=== PATIENT | male | born 1985 | race Caucasian/White ===

== ENCOUNTER 2016-09-27 02:35 | Emergency (ER) | payer OTHER ==
[~2016-09-27] VITALS: Ht 180.3 cm; Wt 76.0 kg
[~2016-09-27 02:35] MED LIST: AMOXICILLIN500 MG PO; ATARAX,VISTARIL50 MG PO; ATIVAN0.5 MG PO; CELEXA10 MG PO; CLONIDINE HCL0.1 MG PO; DOXYCYCLINE HY100 M3 PO; DOXYCYCLINE HY100 MG PO; EXCEDRIN MIGRA1 EAC3 PO; FINASTERIDE1 MG PO; FINASTERIDE5 MG PO; FLEXERIL10 MG PO; HYDROCODON-ACE1 EAC7 PO; K-DUR20 MEQ PO; LEXAPRO10 MG PO; LIBRIUM25 MG PO; MEDROL DOSEPAK4 MG PO; MOTRIN600 MG PO; NAPROXEN500 MG PO; PEPTO BISMOL240 ML PO; PROMETHAZINE HC25 M1 PO; QUETIAPINE FUMA50 MG PO; ROGAINE60 ML TP; SUBOXONE 8 M1 TABLET SL; SUBOXONE 8 MG-1 EAC2 SL; THIAMINE HCL100 MG PO; TRAZODONE HCL50 MG PO; ZANTAC150 MG PO; ZOFRAN ODT4 MG PO; ZOFRAN4 MG PO
[2016-09-27] MEDS ORDERED: ATIVAN2 MG PO (04:31)
[2016-09-27] MEDS ORDERED: THIAMINE HCL100 MG PO (04:31)
[2016-09-27] MEDS ORDERED: ZOFRAN ODT4 MG PO (04:31)
[2016-09-27 04:46] VITALS: BP 114/58
== END 2016-09-27 04:49 | disposition home or self-care (01) ==
LOC: EME 02:35
DX: F10.129 Alcohol abuse with intoxication, unspecified (principal); F11.23 Opioid dependence with withdrawal; F17.200 Nicotine dependence, unspecified, uncomplicated
CPT/HCPCS: 99281; 99284

== ENCOUNTER 2016-10-16 19:54 | Emergency (ER) | payer OTHER ==
[~2016-10-16] VITALS: Ht 180.3 cm; Wt 78.5 kg
[~2016-10-16 19:54] MED LIST changes: +ATIVAN2 MG PO
[2016-10-16 22:07] LABS: BILIRUBIN NEGATIVE; BLOOD NEGATIVE; COLOR YELLOW ((YELLOW)); GLUCOSE (STRIP) NEGATIVE; KETONES 5; LEUKOCYTES NEGATIVE; NITRITE NEGATIVE; PROTEIN (STRIP) NEGATIVE; SPECIFIC GRAVITY 1.017 (1.000-1.030); UROBILINOGEN 0.2 MG/DL (0.2-1.0)
[2016-10-16 22:10] LABS: HEMATOCRIT 43.8 % (38.0-50.0); MCH 31.5 PG (29.0-34.0); MCHC 35.4 G/DL (30.0-36.0); MEAN PLAT.VOLUME 9.7 uM^3 (9.0-12.4); PLATELET COUNT 248 K/uL (156-360); RBC DIS.WIDTH-SD 38.8 % (39-53); RED BLOOD COUNT 4.92 M/uL (4.00-5.50); WHITE BLOOD COUNT 9.6 K/uL (4.1-10.2)
[2016-10-16 22:12] LABS: ADD MIUA? NO
[2016-10-16 22:21] LABS: CHLORIDE 105 mEq/L (99-109); POTASSIUM 4.3 mEq/L (3.7-5.4); SODIUM 142 mEq/L (136-147)
[2016-10-16 22:23] LABS: GLUCOSE 102 mg/dL (70-99)
[2016-10-16 22:24] LABS: ANION GAP 11 MEQ/L (2-14)
[2016-10-16 22:25] LABS: TOTAL BILIRUBIN 0.2 mg/dL (0.0-1.0)
[2016-10-16 22:26] LABS: SERUM ETHYL ALCOHOL 138 mg/dL
[2016-10-16 22:26] LABS: ADD MEDTOX COMMENT Y; AMPHETAMINE NEGATIVE (500 ng/mL); BARBITURATES NEGATIVE (200 ng/mL); BENZODIAZEPINES PRESUMPTIVE POSITIVE (150 ng/mL); COCAINE NEGATIVE (150 ng/mL); INTERNAL CONTROLS VALID? YES; METHADONE NEGATIVE (200 ng/mL); METHAMPHETAMINE NEGATIVE (500 ng/mL); OPIATES (MORPHINE) NEGATIVE (100 ng/mL); OXYCODONE NEGATIVE (100 ng/mL); PHENCYCLIDINE NEGATIVE (25 ng/mL); PROPOXYPHENE NEGATIVE (300 ng/mL); THC CANNABINOIDS NEGATIVE (50 ng/mL); TRICYCLIC ANTIDEPRESSANTS PRESUMPTIVE POSITIVE (300 ng/mL)
[2016-10-16 22:27] LABS: ALKALINE PHOSPHATASE 93 IU/L (3-129); GFR ESTIMATE (CALCULATED) > 59 mL/min/
[2016-10-16 22:28] LABS: UREA NITROGEN (BUN) 7 mg/dL (9-23)
[2016-10-16] MEDS ORDERED: HYDROXYZINE HCL50 MG PO (22:34)
[2016-10-16 22:43] VITALS: BP 136/78
[2016-10-16 23:19] LABS: BENZODIAZEPINES, URINE SCREEN POSITIVE (200 ng/mL)
== END 2016-10-16 22:43 | disposition home or self-care (01) ==
LOC: EME 19:54
PROVIDERS: Emergency Medicine
DX: F10.129 Alcohol abuse with intoxication, unspecified (principal); Y90.6 Blood alcohol level of 120-199 mg/100 ml; F41.9 Anxiety disorder, unspecified; F17.200 Nicotine dependence, unspecified, uncomplicated
CPT/HCPCS: 80053; 81003; 84999; 85027; 99281; 99284; G0480

== ENCOUNTER 2016-12-21 07:27 | Emergency (ER) | payer OTHER ==
[~2016-12-21] VITALS: Ht 180.3 cm; Wt 72.7 kg
[~2016-12-21 07:27] MED LIST changes: +HYDROXYZINE HCL50 MG PO
[2016-12-21 08:40] LABS: HEMATOCRIT 47.4 % (38.0-50.0); MCH 31.1 PG (29.0-34.0); MCHC 35.4 G/DL (30.0-36.0); MCV 87.8 FL (86-99); MEAN PLAT.VOLUME 9.8 uM^3 (9.0-12.4); PLATELET COUNT 196 K/uL (156-360); RBC DIS.WIDTH-CV 13.2 % (11.8-14.6); RBC DIS.WIDTH-SD 42.6 % (39-53); WHITE BLOOD COUNT 6.6 K/uL (4.1-10.2)
[2016-12-21 08:56] LABS: TROP-I INTERPRETATION NEGATIVE; TROPONIN-I < 0.01 ng/mL (0.0-0.30)
[2016-12-21 09:00] LABS: CHLORIDE 106 mEq/L (99-109); D-DIMER ELISA 0.31 mg/L FEU (< 0.57); POTASSIUM 3.9 mEq/L (3.7-5.4); SODIUM 138 mEq/L (136-147)
[2016-12-21 09:01] LABS: GLUCOSE 101 mg/dL (70-99)
[2016-12-21 09:03] LABS: ANION GAP 8 MEQ/L (2-14)
[2016-12-21 09:05] LABS: GFR ESTIMATE (CALCULATED) > 59 mL/min/
[2016-12-21 09:06] LABS: UREA NITROGEN (BUN) 6 mg/dL (9-23)
[2016-12-21 10:32] VITALS: BP 138/86
== END 2016-12-21 10:43 | disposition home or self-care (01) ==
LOC: EME 07:27
PROVIDERS: Emergency Medicine
DX: R00.2 Palpitations (principal); F17.200 Nicotine dependence, unspecified, uncomplicated; F19.10 Other psychoactive substance abuse, uncomplicated; F10.10 Alcohol abuse, uncomplicated; Z91.19 Patient's noncompliance with other medical treatment and regimen
CPT/HCPCS: 71010; 80048; 84484; 85027; 85379; 93005; 99281; 99284

== ENCOUNTER 2017-02-07 03:56 | Emergency (ER) | payer OTHER ==
[~2017-02-07] VITALS: Ht 180.3 cm; Wt 71.3 kg
[2017-02-07 04:32] LABS: HEMATOCRIT 44.9 % (38.0-50.0); MCHC 35.6 G/DL (30.0-36.0); MEAN PLAT.VOLUME 10.2 uM^3 (9.0-12.4); PLATELET COUNT 135 K/uL (156-360); RBC DIS.WIDTH-CV 13.7 % (11.8-14.6); RBC DIS.WIDTH-SD 44.1 % (39-53); RED BLOOD COUNT 5.16 M/uL (4.00-5.50); WHITE BLOOD COUNT 10.6 K/uL (4.1-10.2)
[2017-02-07 04:45] LABS: CHLORIDE 102 mEq/L (99-109); POTASSIUM 3.4 mEq/L (3.7-5.4); SODIUM 142 mEq/L (136-147)
[2017-02-07 04:47] LABS: GLUCOSE 89 mg/dL (70-99)
[2017-02-07 04:49] LABS: ANION GAP 19 MEQ/L (2-14)
[2017-02-07 04:50] LABS: SERUM ETHYL ALCOHOL 294 mg/dL
[2017-02-07 04:51] LABS: GFR ESTIMATE (CALCULATED) > 59 mL/min/
[2017-02-07 04:52] LABS: UREA NITROGEN (BUN) 7 mg/dL (9-23)
[2017-02-07 04:55] LABS: TROP-I INTERPRETATION NEGATIVE; TROPONIN-I < 0.01 ng/mL (0.0-0.30)
[2017-02-07 05:48] LABS: D-DIMER ELISA 0.99 mg/L FEU (< 0.57)
[2017-02-07] MEDS ORDERED: ATIVAN2 MG PO (05:53)
[2017-02-07 09:03] VITALS: BP 114/67
== END 2017-02-07 09:04 | disposition home or self-care (01) ==
LOC: EME → EDBD 03:56 → EME 04:14
PROVIDERS: Physician Assistant
DX: R00.2 Palpitations (principal); F10.129 Alcohol abuse with intoxication, unspecified; T44.7X6A Underdosing of beta-adrenoreceptor antagonists, initial encounter; Z91.128 Patient's intentional underdosing of medication regimen for other reason; Z91.19 Patient's noncompliance with other medical treatment and regimen; Y90.8 Blood alcohol level of 240 mg/100 ml or more; F17.200 Nicotine dependence, unspecified, uncomplicated
CPT/HCPCS: 71275; 80048; 84484; 85027; 85379; 93005; 99281; 99284; G0480; J2060; J7030

== ENCOUNTER 2017-03-22 09:03 | Emergency (ER) | payer OTHER ==
[~2017-03-22] VITALS: Ht 180.3 cm; Wt 69.1 kg
[2017-03-22 10:36] LABS: ADD MIUA? NO; BILIRUBIN NEGATIVE; BLOOD NEGATIVE; COLOR YELLOW ((YELLOW)); GLUCOSE (STRIP) NEGATIVE; KETONES NEGATIVE; LEUKOCYTES NEGATIVE; NITRITE NEGATIVE; PROTEIN (STRIP) NEGATIVE; SPECIFIC GRAVITY 1.015 (1.000-1.030); UROBILINOGEN 0.2 MG/DL (0.2-1.0)
[2017-03-22 10:53] LABS: ADD MEDTOX COMMENT Y; AMPHETAMINE NEGATIVE (500 ng/mL); BARBITURATES NEGATIVE (200 ng/mL); BENZODIAZEPINES PRESUMPTIVE POSITIVE (150 ng/mL); COCAINE NEGATIVE (150 ng/mL); INTERNAL CONTROLS VALID? YES; METHADONE NEGATIVE (200 ng/mL); METHAMPHETAMINE NEGATIVE (500 ng/mL); OPIATES (MORPHINE) NEGATIVE (100 ng/mL); OXYCODONE NEGATIVE (100 ng/mL); PHENCYCLIDINE NEGATIVE (25 ng/mL); PROPOXYPHENE NEGATIVE (300 ng/mL); THC CANNABINOIDS NEGATIVE (50 ng/mL); TRICYCLIC ANTIDEPRESSANTS PRESUMPTIVE POSITIVE (300 ng/mL)
[2017-03-22 11:26] LABS: BENZODIAZEPINES, URINE SCREEN POSITIVE (200 ng/mL)
[2017-03-22 13:38] LABS: HEMATOCRIT 46.6 % (38.0-50.0); MCH 31.1 PG (29.0-34.0); MCHC 34.5 G/DL (30.0-36.0); MCV 90.1 FL (86-99); MEAN PLAT.VOLUME 9.5 uM^3 (9.0-12.4); PLATELET COUNT 243 K/uL (156-360); RBC DIS.WIDTH-CV 13.2 % (11.8-14.6); RBC DIS.WIDTH-SD 43.8 % (39-53); RED BLOOD COUNT 5.17 M/uL (4.00-5.50); WHITE BLOOD COUNT 7.4 K/uL (4.1-10.2)
[2017-03-22 13:49] LABS: CHLORIDE 107 mEq/L (99-109); POTASSIUM 4.6 mEq/L (3.7-5.4); SODIUM 141 mEq/L (136-147)
[2017-03-22 13:51] LABS: GLUCOSE 83 mg/dL (70-99)
[2017-03-22 13:52] LABS: ANION GAP 8 MEQ/L (2-14)
[2017-03-22 13:53] LABS: TOTAL BILIRUBIN 0.4 mg/dL (0.0-1.0)
[2017-03-22 13:54] LABS: SERUM ETHYL ALCOHOL 122 mg/dL
[2017-03-22 13:55] LABS: ALKALINE PHOSPHATASE 98 IU/L (3-129); GFR ESTIMATE (CALCULATED) > 59 mL/min/
[2017-03-22 13:56] LABS: UREA NITROGEN (BUN) 11 mg/dL (9-23)
[2017-03-22 14:01] VITALS: BP 101/60
== END 2017-03-22 14:04 | disposition left against medical advice (07) ==
LOC: EME 09:03
PROVIDERS: Emergency Medicine
DX: F11.10 Opioid abuse, uncomplicated (principal); F10.10 Alcohol abuse, uncomplicated; Z53.20 Procedure and treatment not carried out because of patient's decision for unspecified reasons; K21.9 Gastro-esophageal reflux disease without esophagitis; F17.200 Nicotine dependence, unspecified, uncomplicated
CPT/HCPCS: 80053; 81003; 84999; 85027; 99281; 99284; G0480

== ENCOUNTER 2017-04-25 01:27 | Emergency (ER) | payer OTHER ==
[~2017-04-25] VITALS: Ht 177.8 cm; Wt 72.8 kg
[2017-04-25 02:14] LABS: MCH 31.6 PG (29.0-34.0); MCHC 35.5 G/DL (30.0-36.0); MCV 89.2 FL (86-99); MEAN PLAT.VOLUME 9.8 uM^3 (9.0-12.4); PLATELET COUNT 221 K/uL (156-360); RBC DIS.WIDTH-CV 12.9 % (11.8-14.6); RBC DIS.WIDTH-SD 42.5 % (39-53); RED BLOOD COUNT 4.71 M/uL (4.00-5.50); WHITE BLOOD COUNT 9.5 K/uL (4.1-10.2)
[2017-04-25 02:30] LABS: CHLORIDE 105 mEq/L (99-109); POTASSIUM 3.8 mEq/L (3.7-5.4); SODIUM 142 mEq/L (136-147)
[2017-04-25 02:32] LABS: GLUCOSE 107 mg/dL (70-99)
[2017-04-25 02:33] LABS: ANION GAP 14 MEQ/L (2-14)
[2017-04-25 02:34] LABS: TROP-I INTERPRETATION NEGATIVE; TROPONIN-I < 0.01 ng/mL (0.0-0.30)
[2017-04-25 02:35] LABS: SERUM ETHYL ALCOHOL 140 mg/dL
[2017-04-25 02:36] LABS: GFR ESTIMATE (CALCULATED) > 59 mL/min/
[2017-04-25 02:37] LABS: UREA NITROGEN (BUN) 7 mg/dL (9-23)
[2017-04-25 08:04] VITALS: BP 107/71
== END 2017-04-25 08:06 | disposition home or self-care (01) ==
LOC: EME 01:27
PROVIDERS: Emergency Medicine
DX: R07.9 Chest pain, unspecified (principal); F10.239 Alcohol dependence with withdrawal, unspecified; F17.200 Nicotine dependence, unspecified, uncomplicated; I47.1 Supraventricular tachycardia
CPT/HCPCS: 71020; 80048; 84484; 85027; 93005; 99281; 99284; G0480; J2060; J7030

== ENCOUNTER 2017-06-07 04:26 | Inpatient (IN) | payer OTHER ==
[~2017-06-07] VITALS: Ht 180.3 cm; Wt 70.5 kg
[2017-06-07 05:23] LABS: HEMATOCRIT 44.4 % (38.0-50.0); MCH 30.7 PG (29.0-34.0); MCHC 34.5 G/DL (30.0-36.0); MCV 89.2 FL (86-99); MEAN PLAT.VOLUME 9.4 uM^3 (9.0-12.4); PLATELET COUNT 244 K/uL (156-360); RBC DIS.WIDTH-SD 42.4 % (39-53); RED BLOOD COUNT 4.98 M/uL (4.00-5.50)
[2017-06-07 05:27] LABS: CHLORIDE 105 mEq/L (99-109); POTASSIUM 4.1 mEq/L (3.7-5.4); SODIUM 143 mEq/L (136-147)
[2017-06-07 05:29] LABS: TROP-I INTERPRETATION NEGATIVE; TROPONIN-I < 0.01 ng/mL (0.0-0.30)
[2017-06-07 05:30] LABS: GLUCOSE 112 mg/dL (70-99)
[2017-06-07 05:31] LABS: ANION GAP 11 MEQ/L (2-14); TOTAL BILIRUBIN 0.3 mg/dL (0.0-1.0)
[2017-06-07 05:32] LABS: SERUM ETHYL ALCOHOL 240 mg/dL
[2017-06-07 05:33] LABS: ALKALINE PHOSPHATASE 89 IU/L (3-129); GFR ESTIMATE (CALCULATED) > 59 mL/min/
[2017-06-07 05:34] LABS: UREA NITROGEN (BUN) 10 mg/dL (9-23)
[2017-06-07 05:37] LABS: LIPASE 37 U/L (1.0-51.0)
[2017-06-07 08:40] LABS: MAGNESIUM 2.1 mg/dL (1.3-2.7)
[2017-06-07] MEDS ORDERED: QUETIAPINE FUM100 MG PO (10:21)
[2017-06-07] MEDS ORDERED: SUBOXONE 8 MG-1 EAC2 SL (10:34)
[2017-06-07] MEDS ORDERED: EFFEXOR50 MG PO (11:19)
[2017-06-07 12:33] LABS: TROP-I INTERPRETATION NEGATIVE; TROPONIN-I < 0.01 ng/mL (0.0-0.30)
[2017-06-07 17:49] VITALS: BP 132/84
[2017-06-07 18:23] LABS: TROP-I INTERPRETATION NEGATIVE; TROPONIN-I < 0.01 ng/mL (0.0-0.30)
[2017-06-07 18:29] VITALS: BP 134/84
[2017-06-07 20:13] VITALS: BP 143/86
[2017-06-08 00:32] VITALS: BP 135/91
[2017-06-08 07:45] VITALS: BP 130/72
[2017-06-08] MEDS ORDERED: LIBRIUM10 MG PO (10:38)
[2017-06-08] MEDS ORDERED: CLONIDINE1 EACH TD (10:38)
== END 2017-06-08 11:14 | disposition home or self-care (01) | DRG 313 ==
LOC: EME → EDBD 04:26 → EDOF 07:55 → ENRESERV 07:58 → CANRESERV 07:58 → EDOF 08:15 → ENRESERV 08:55 → CANRESERV 12:13 → ENRESERV 13:11 → 3EAST 17:37
PROVIDERS: Emergency Medicine; Internal Medicine
DX: R07.89 Other chest pain (principal); F43.0 Acute stress reaction; R00.2 Palpitations; R00.0 Tachycardia, unspecified; F10.239 Alcohol dependence with withdrawal, unspecified; F11.20 Opioid dependence, uncomplicated; F17.200 Nicotine dependence, unspecified, uncomplicated; F60.9 Personality disorder, unspecified; F32.9 Major depressive disorder, single episode, unspecified; F41.9 Anxiety disorder, unspecified; Y90.8 Blood alcohol level of 240 mg/100 ml or more
CPT/HCPCS: 71010; 80048; 80053; 83690; 83735; 84484; 85027; 93005; 99281; 99285; G0480; J0574; J2060; J3411; J7030; J7042; S0028

== ENCOUNTER 2017-08-04 22:06 | Inpatient (IN) | payer OTHER ==
[~2017-08-04] VITALS: Ht 180.3 cm; Wt 71.3 kg
[~2017-08-04 22:06] MED LIST changes: +CLONIDINE1 EACH TD; +EFFEXOR50 MG PO; +LIBRIUM10 MG PO; +QUETIAPINE FUM100 MG PO
[2017-08-04 22:34] LABS: HEMATOCRIT 42.4 % (38.0-50.0); HEMOGLOBIN 15.2 G/DL (12.5-16.6); MCH 31.7 PG (29.0-34.0); MCHC 35.8 G/DL (30.0-36.0); MCV 88.3 FL (86-99); PLATELET COUNT 197 K/uL (156-360); RBC DIS.WIDTH-CV 13.5 % (11.8-14.6); RBC DIS.WIDTH-SD 44.1 % (39-53); WHITE BLOOD COUNT 7.7 K/uL (4.1-10.2)
[2017-08-04 22:45] LABS: CHLORIDE 103 mEq/L (99-109); POTASSIUM 3.6 mEq/L (3.7-5.4); SODIUM 138 mEq/L (136-147)
[2017-08-04 22:47] LABS: GLUCOSE 144 mg/dL (70-99)
[2017-08-04 22:50] LABS: SERUM ETHYL ALCOHOL 17 mg/dL
[2017-08-04 22:51] LABS: GFR ESTIMATE (CALCULATED) > 59 mL/min/ (58.99-99999)
[2017-08-04 22:52] LABS: UREA NITROGEN (BUN) 13 mg/dL (9-23)
[2017-08-04] MEDS ORDERED: BUPRENORPHIN-N1 EACH SL (23:06)
[2017-08-04 23:33] LABS: ALBUMIN 4.2 g/dL (3.2-4.8)
[2017-08-04 23:36] LABS: TOTAL PROTEIN 7.1 g/dL (6.4-8.3)
[2017-08-04 23:38] LABS: TOTAL BILIRUBIN 0.3 mg/dL (0.0-1.0)
[2017-08-04 23:39] LABS: ALKALINE PHOSPHATASE 90 IU/L (3-129)
[2017-08-04 23:41] LABS: AST (GOT) 22 IU/L (2-34)
[2017-08-04 23:42] LABS: ALT (GPT) 20 IU/L (3-49)
[2017-08-04 23:43] LABS: LIPASE 37 U/L (1.0-51.0)
[2017-08-05] MEDS ORDERED: ALPRAZOLAM0.25 M2 PO (01:11)
[2017-08-05] MEDS ORDERED: ADDERALL XR 3030 MG PO (01:11)
[2017-08-05] MEDS ORDERED: SEROQUEL100 MG PO (01:11)
[2017-08-05 12:13] LABS: AMPHETAMINE NEGATIVE (500 ng/mL); BARBITURATES NEGATIVE (200 ng/mL); BENZODIAZEPINES PRESUMPTIVE POSITIVE (150 ng/mL); BUPRENORPHINE PRESUMPTIVE POSITIVE (10 ng/mL); COCAINE NEGATIVE (150 ng/mL); METHADONE NEGATIVE (200 ng/mL); METHAMPHETAMINE NEGATIVE (500 ng/mL); OPIATES (MORPHINE) NEGATIVE (100 ng/mL); OXYCODONE NEGATIVE (100 ng/mL); PHENCYCLIDINE NEGATIVE (25 ng/mL); PROPOXYPHENE NEGATIVE (300 ng/mL); THC CANNABINOIDS NEGATIVE (50 ng/mL); TRICYCLIC ANTIDEPRESSANTS NEGATIVE (300 ng/mL)
[2017-08-05 12:49] LABS: BENZODIAZEPINES, URINE SCREEN POSITIVE (200 ng/mL)
[2017-08-05 16:53] VITALS: BP 142/97
[2017-08-05 19:29] VITALS: BP 139/89
[2017-08-05 23:41] VITALS: BP 146/101
[2017-08-06 08:35] VITALS: BP 133/95
[2017-08-06 10:45] LABS: BASOPHIL (%) 0.6 % (0-1); EOSINOPHIL (%) 4.7 % (0-5); EOSINOPHIL COUNT 0.3 K/uL (0-0.3); HEMATOCRIT 41.5 % (38.0-50.0); HEMOGLOBIN 14.7 G/DL (12.5-16.6); IMMATURE GRANULOCYTE (%) 0.3 % (0.0-0.7); LYMPHOCYTE (%) 32.1 % (15-42); MCH 31.5 PG (29.0-34.0); MCHC 35.4 G/DL (30.0-36.0); MCV 89.1 FL (86-99); MONOCYTE (%) 11.7 % (3-12); MONOCYTE COUNT 0.7 K/uL (0-0.8); NEUTROPHIL (%) 50.6 % (45-76); NEUTROPHIL COUNT 3.2 K/uL (1.8-6.4); PLATELET COUNT 178 K/uL (156-360); RBC DIS.WIDTH-CV 13.3 % (11.8-14.6); RBC DIS.WIDTH-SD 43.8 % (39-53); RED BLOOD COUNT 4.66 M/uL (4.00-5.50); WHITE BLOOD COUNT 6.4 K/uL (4.1-10.2)
[2017-08-06 10:59] LABS: ALBUMIN 3.7 g/dL (3.2-4.8); CHLORIDE 110 mEq/L (99-109); POTASSIUM 4.6 mEq/L (3.7-5.4); SODIUM 139 mEq/L (136-147)
[2017-08-06 11:00] LABS: MAGNESIUM 2.2 mg/dL (1.3-2.7)
[2017-08-06 11:05] LABS: ALKALINE PHOSPHATASE 77 IU/L (3-129); CREATININE 0.8 mg/dL (0.6-1.3); GFR ESTIMATE (CALCULATED) > 59 mL/min/ (58.99-99999); GLUCOSE 96 mg/dL (70-99); TOTAL BILIRUBIN 0.4 mg/dL (0.0-1.0)
[2017-08-06 11:06] LABS: UREA NITROGEN (BUN) 9 mg/dL (9-23)
[2017-08-06 11:07] LABS: AST (GOT) 16 IU/L (2-34)
[2017-08-06 11:08] LABS: ALT (GPT) 13 IU/L (3-49)
[2017-08-06 11:25] VITALS: BP 142/106
== END 2017-08-06 20:50 | disposition left against medical advice (07) | DRG 894 ==
LOC: EME 22:06 → 5EAST 08-05 00:44 → EDOF 08-05 00:44 → 5EAST 08-05 00:44 → ENRESERV 08-05 00:46 → 5EAST 08-05 16:54
PROVIDERS: Physician Assistant
PROC: HZ2ZZZZ Detoxification Services for Substance Abuse Treatment (ICD-10-PCS; principal; 2017-08-05)
DX: F10.239 Alcohol dependence with withdrawal, unspecified (principal); F11.20 Opioid dependence, uncomplicated; F33.9 Major depressive disorder, recurrent, unspecified; R44.0 Auditory hallucinations; F60.9 Personality disorder, unspecified; F41.0 Panic disorder [episodic paroxysmal anxiety]; F17.210 Nicotine dependence, cigarettes, uncomplicated; F17.220 Nicotine dependence, chewing tobacco, uncomplicated; F13.10 Sedative, hypnotic or anxiolytic abuse, uncomplicated; Y90.0 Blood alcohol level of less than 20 mg/100 ml; F12.10 Cannabis abuse, uncomplicated; G25.2 Other specified forms of tremor; R45.1 Restlessness and agitation; F90.9 Attention-deficit hyperactivity disorder, unspecified type; Z88.1 Allergy status to other antibiotic agents; Z91.14 Patient's other noncompliance with medication regimen; Z91.19 Patient's noncompliance with other medical treatment and regimen
CPT/HCPCS: 80048; 80053; 80076; 82140; 83690; 83735; 84999; 85025; 85027; 99281; 99285; G0480; J0572; J0574; J2060; J2405; J3411; J3475; J7030

== ENCOUNTER 2017-08-09 17:35 | Emergency (ER) | payer OTHER ==
[~2017-08-09] VITALS: Ht 180.3 cm; Wt 74.8 kg
[~2017-08-09 17:35] MED LIST changes: +ADDERALL XR 3030 MG PO; +ALPRAZOLAM0.25 M2 PO; +BUPRENORPHIN-N1 EACH SL; +SEROQUEL100 MG PO
[2017-08-09 18:58] LABS: HEMATOCRIT 42.7 % (38.0-50.0); HEMOGLOBIN 15.8 G/DL (12.5-16.6); MCH 32.2 PG (29.0-34.0); MCV 87.1 FL (86-99); RBC DIS.WIDTH-CV 13.3 % (11.8-14.6); RBC DIS.WIDTH-SD 42.7 % (39-53); WHITE BLOOD COUNT 9.4 K/uL (4.1-10.2)
[2017-08-09 18:59] LABS: PLATELET COUNT 240 K/uL (156-360)
[2017-08-09 19:06] LABS: ALBUMIN 4.1 g/dL (3.2-4.8)
[2017-08-09 19:07] LABS: CHLORIDE 110 mEq/L (99-109); POTASSIUM 3.8 mEq/L (3.7-5.4); SODIUM 144 mEq/L (136-147)
[2017-08-09 19:09] LABS: GLUCOSE 113 mg/dL (70-99); TOTAL PROTEIN 6.9 g/dL (6.4-8.3)
[2017-08-09 19:12] LABS: ALKALINE PHOSPHATASE 89 IU/L (3-129)
[2017-08-09 19:13] LABS: CREATININE 0.9 mg/dL (0.6-1.3); GFR ESTIMATE (CALCULATED) > 59 mL/min/ (58.99-99999)
[2017-08-09 19:14] LABS: AST (GOT) 20 IU/L (2-34); UREA NITROGEN (BUN) 8 mg/dL (9-23)
[2017-08-09 19:15] LABS: ALT (GPT) 22 IU/L (3-49)
[2017-08-09 19:20] LABS: TOTAL BILIRUBIN 0.2 mg/dL (0.0-1.0)
[2017-08-09 19:33] LABS: SERUM ETHYL ALCOHOL 276 mg/dL
[2017-08-09 20:30] VITALS: BP 143/94
== END 2017-08-09 20:29 | disposition left against medical advice (07) ==
LOC: EME 17:35
DX: F10.229 Alcohol dependence with intoxication, unspecified (principal); Y90.8 Blood alcohol level of 240 mg/100 ml or more; F17.200 Nicotine dependence, unspecified, uncomplicated
CPT/HCPCS: 80053; 81003; 85027; 99281; 99283; G0480

== ENCOUNTER 2017-08-20 14:25 | Emergency (ER) | payer OTHER ==
[~2017-08-20] VITALS: Ht 180.3 cm; Wt 72.3 kg
[2017-08-20 19:11] LABS: HEMATOCRIT 41.9 % (38.0-50.0); HEMOGLOBIN 14.6 G/DL (12.5-16.6); MCH 30.9 PG (29.0-34.0); MCHC 34.8 G/DL (30.0-36.0); MCV 88.8 FL (86-99); PLATELET COUNT 256 K/uL (156-360); RBC DIS.WIDTH-CV 13.5 % (11.8-14.6); RBC DIS.WIDTH-SD 44.3 % (39-53); RED BLOOD COUNT 4.72 M/uL (4.00-5.50); WHITE BLOOD COUNT 7.9 K/uL (4.1-10.2)
[2017-08-20 19:19] LABS: CHLORIDE 108 mEq/L (99-109); POTASSIUM 4.2 mEq/L (3.7-5.4); SODIUM 145 mEq/L (136-147)
[2017-08-20 19:21] LABS: GLUCOSE 97 mg/dL (70-99)
[2017-08-20 19:24] LABS: SERUM ETHYL ALCOHOL 160 mg/dL
[2017-08-20 19:25] LABS: CREATININE 0.9 mg/dL (0.6-1.3); GFR ESTIMATE (CALCULATED) > 59 mL/min/ (58.99-99999)
[2017-08-20 19:27] LABS: UREA NITROGEN (BUN) 9 mg/dL (9-23)
[2017-08-20 19:28] LABS: ACETAMINOPHEN (TYLENOL) < 10 mcg/mL (10-30); SALICYLATE < 5.0 MG/DL (15-30)
[2017-08-20 20:27] LABS: AMPHETAMINE NEGATIVE (500 ng/mL); BARBITURATES NEGATIVE (200 ng/mL); BENZODIAZEPINES PRESUMPTIVE POSITIVE (150 ng/mL); BUPRENORPHINE PRESUMPTIVE POSITIVE (10 ng/mL); COCAINE NEGATIVE (150 ng/mL); METHADONE NEGATIVE (200 ng/mL); METHAMPHETAMINE NEGATIVE (500 ng/mL); OPIATES (MORPHINE) NEGATIVE (100 ng/mL); OXYCODONE NEGATIVE (100 ng/mL); PHENCYCLIDINE NEGATIVE (25 ng/mL); PROPOXYPHENE NEGATIVE (300 ng/mL); THC CANNABINOIDS NEGATIVE (50 ng/mL); TRICYCLIC ANTIDEPRESSANTS NEGATIVE (300 ng/mL)
[2017-08-20 20:59] LABS: BENZODIAZEPINES, URINE SCREEN POSITIVE (200 ng/mL)
[2017-08-20] MEDS ORDERED: LIBRIUM25 MG PO (21:59)
[2017-08-20 22:05] VITALS: BP 125/89
== END 2017-08-20 22:31 | disposition home or self-care (01) ==
LOC: EME 14:25
PROVIDERS: Emergency Medicine
DX: F10.239 Alcohol dependence with withdrawal, unspecified (principal); R11.2 Nausea with vomiting, unspecified; F32.9 Major depressive disorder, single episode, unspecified; Y90.6 Blood alcohol level of 120-199 mg/100 ml; F17.200 Nicotine dependence, unspecified, uncomplicated
CPT/HCPCS: 80048; 84999; 85027; 90839; G0480; J2060; J7030

== ENCOUNTER 2017-08-28 19:13 | Emergency (ER) | payer OTHER ==
[~2017-08-28] VITALS: Ht 180.3 cm; Wt 71.3 kg
[2017-08-28 19:56] LABS: HEMATOCRIT 42.1 % (38.0-50.0); HEMOGLOBIN 15.3 G/DL (12.5-16.6); MCH 31.9 PG (29.0-34.0); MCHC 36.3 G/DL (30.0-36.0); MCV 87.7 FL (86-99); PLATELET COUNT 236 K/uL (156-360); RBC DIS.WIDTH-CV 13.5 % (11.8-14.6); RBC DIS.WIDTH-SD 43.5 % (39-53); WHITE BLOOD COUNT 15.2 K/uL (4.1-10.2)
[2017-08-28 20:00] LABS: APPEARANCE CLEAR ((CLEAR)); BILIRUBIN NEGATIVE; BLOOD NEGATIVE; COLOR STRAW ((YELLOW)); GLUCOSE (STRIP) NEGATIVE; KETONES NEGATIVE; LEUKOCYTES NEGATIVE; NITRITE NEGATIVE; PROTEIN (STRIP) NEGATIVE; SPECIFIC GRAVITY 1.006 (1.000-1.030); UROBILINOGEN 0.2 MG/DL (0.2-1.0)
[2017-08-28 20:07] LABS: ALBUMIN 4.6 g/dL (3.2-4.8); CHLORIDE 109 mEq/L (99-109); POTASSIUM 4.2 mEq/L (3.7-5.4); SODIUM 142 mEq/L (136-147)
[2017-08-28 20:09] LABS: GLUCOSE 103 mg/dL (70-99); TOTAL PROTEIN 7.4 g/dL (6.4-8.3)
[2017-08-28 20:10] LABS: PHENCYCLIDINE NEGATIVE (25 ng/mL); THC CANNABINOIDS NEGATIVE (50 ng/mL)
[2017-08-28 20:11] LABS: AMPHETAMINE NEGATIVE (500 ng/mL); BARBITURATES NEGATIVE (200 ng/mL); BENZODIAZEPINES PRESUMPTIVE POSITIVE (150 ng/mL); BUPRENORPHINE NEGATIVE (10 ng/mL); COCAINE NEGATIVE (150 ng/mL); METHADONE PRESUMPTIVE POSITIVE (200 ng/mL); METHAMPHETAMINE NEGATIVE (500 ng/mL); OPIATES (MORPHINE) NEGATIVE (100 ng/mL); OXYCODONE NEGATIVE (100 ng/mL); PROPOXYPHENE NEGATIVE (300 ng/mL); TRICYCLIC ANTIDEPRESSANTS NEGATIVE (300 ng/mL)
[2017-08-28 20:11] LABS: TOTAL BILIRUBIN 0.3 mg/dL (0.0-1.0)
[2017-08-28 20:12] LABS: SERUM ETHYL ALCOHOL 343 mg/dL
[2017-08-28 20:13] LABS: ALKALINE PHOSPHATASE 89 IU/L (3-129); CREATININE 1.2 mg/dL (0.6-1.3); GFR ESTIMATE (CALCULATED) > 59 mL/min/ (58.99-99999)
[2017-08-28 20:14] LABS: AST (GOT) 27 IU/L (2-34); UREA NITROGEN (BUN) 13 mg/dL (9-23)
[2017-08-28 20:16] LABS: ALT (GPT) 20 IU/L (3-49)
[2017-08-28 23:47] VITALS: BP 129/78
[2017-08-29 04:03] LABS: BENZODIAZEPINES, URINE SCREEN POSITIVE (200 ng/mL)
== END 2017-08-28 23:50 | disposition home or self-care (01) ==
LOC: EME 19:13
PROVIDERS: Emergency Medicine
DX: F11.129 Opioid abuse with intoxication, unspecified (principal); F13.129 Sedative, hypnotic or anxiolytic abuse with intoxication, unspecified; K21.9 Gastro-esophageal reflux disease without esophagitis; I10 Essential (primary) hypertension; F17.200 Nicotine dependence, unspecified, uncomplicated; F41.0 Panic disorder [episodic paroxysmal anxiety]; F32.9 Major depressive disorder, single episode, unspecified; Y90.8 Blood alcohol level of 240 mg/100 ml or more; Z88.1 Allergy status to other antibiotic agents
CPT/HCPCS: 80053; 81003; 84999; 85027; 99281; 99285; G0480

== ENCOUNTER 2017-08-29 14:09 | Emergency (ER) | payer OTHER ==
[~2017-08-29] VITALS: Ht 180.3 cm; Wt 75.0 kg
[2017-08-29 14:38] LABS: BASOPHIL (%) 0.7 % (0-1); BASOPHIL COUNT 0.1 K/uL (0-0.1); EOSINOPHIL (%) 4.9 % (0-5); EOSINOPHIL COUNT 0.4 K/uL (0-0.3); HEMATOCRIT 41.9 % (38.0-50.0); HEMOGLOBIN 14.9 G/DL (12.5-16.6); IMMATURE GRANULOCYTE (%) 0.6 % (0.0-0.7); LYMPHOCYTE (%) 22.6 % (15-42); LYMPHOCYTE COUNT 1.9 K/uL (1.0-2.8); MCH 31.5 PG (29.0-34.0); MCHC 35.6 G/DL (30.0-36.0); MCV 88.6 FL (86-99); MONOCYTE (%) 9.4 % (3-12); MONOCYTE COUNT 0.8 K/uL (0-0.8); NEUTROPHIL (%) 61.8 % (45-76); NEUTROPHIL COUNT 5.3 K/uL (1.8-6.4); PLATELET COUNT 210 K/uL (156-360); RBC DIS.WIDTH-CV 13.7 % (11.8-14.6); RBC DIS.WIDTH-SD 44.4 % (39-53); RED BLOOD COUNT 4.73 M/uL (4.00-5.50); WHITE BLOOD COUNT 8.6 K/uL (4.1-10.2)
[2017-08-29 14:51] LABS: ALBUMIN 4.2 g/dL (3.2-4.8); CHLORIDE 106 mEq/L (99-109); POTASSIUM 4.1 mEq/L (3.7-5.4); SODIUM 143 mEq/L (136-147)
[2017-08-29 14:53] LABS: GLUCOSE 82 mg/dL (70-99); TOTAL PROTEIN 6.7 g/dL (6.4-8.3)
[2017-08-29 14:56] LABS: SERUM ETHYL ALCOHOL 318 mg/dL
[2017-08-29 14:57] LABS: ALKALINE PHOSPHATASE 70 IU/L (3-129); CREATININE 0.9 mg/dL (0.6-1.3); GFR ESTIMATE (CALCULATED) > 59 mL/min/ (58.99-99999)
[2017-08-29 14:58] LABS: AST (GOT) 36 IU/L (2-34); UREA NITROGEN (BUN) 11 mg/dL (9-23)
[2017-08-29 15:00] LABS: ALT (GPT) 21 IU/L (3-49)
[2017-08-29 15:04] LABS: TOTAL BILIRUBIN 0.4 mg/dL (0.0-1.0)
[2017-08-29 16:45] LABS: AMPHETAMINE NEGATIVE (500 ng/mL); BENZODIAZEPINES PRESUMPTIVE POSITIVE (150 ng/mL); COCAINE NEGATIVE (150 ng/mL); METHAMPHETAMINE NEGATIVE (500 ng/mL); OPIATES (MORPHINE) NEGATIVE (100 ng/mL); PHENCYCLIDINE NEGATIVE (25 ng/mL); THC CANNABINOIDS NEGATIVE (50 ng/mL)
[2017-08-29 16:46] LABS: BARBITURATES NEGATIVE (200 ng/mL); BUPRENORPHINE NEGATIVE (10 ng/mL); METHADONE PRESUMPTIVE POSITIVE (200 ng/mL); OXYCODONE NEGATIVE (100 ng/mL); PROPOXYPHENE NEGATIVE (300 ng/mL); TRICYCLIC ANTIDEPRESSANTS NEGATIVE (300 ng/mL)
[2017-08-29 17:20] VITALS: BP 00/00
[2017-08-29 17:23] LABS: BENZODIAZEPINES, URINE SCREEN POSITIVE (200 ng/mL)
== END 2017-08-29 17:28 | disposition home or self-care (01) ==
LOC: EME 14:09
PROVIDERS: Emergency Medicine
DX: F10.129 Alcohol abuse with intoxication, unspecified (principal); K21.9 Gastro-esophageal reflux disease without esophagitis; I10 Essential (primary) hypertension; F32.9 Major depressive disorder, single episode, unspecified; F41.0 Panic disorder [episodic paroxysmal anxiety]; F41.9 Anxiety disorder, unspecified; F17.200 Nicotine dependence, unspecified, uncomplicated; Y90.8 Blood alcohol level of 240 mg/100 ml or more; Z79.891 Long term (current) use of opiate analgesic; Z88.1 Allergy status to other antibiotic agents
CPT/HCPCS: 80053; 83735; 84999; 85025; 99281; 99283; G0480

== ENCOUNTER 2017-10-09 22:58 | Emergency (ER) | payer OTHER ==
[~2017-10-09] VITALS: Ht 180.3 cm; Wt 72.0 kg
[2017-10-10] MEDS ORDERED: MOTRIN800 MG PO (02:18)
[2017-10-10] MEDS ORDERED: FIORICET 50-301 EAC1 PO (02:18)
[2017-10-10] MEDS ORDERED: REGLAN10 MG PO (02:18)
[2017-10-10 03:20] VITALS: BP 120/83
== END 2017-10-10 03:24 | disposition home or self-care (01) ==
LOC: EME 22:58
DX: G43.009 Migraine without aura, not intractable, without status migrainosus (principal); G44.209 Tension-type headache, unspecified, not intractable; R42 Dizziness and giddiness; F17.200 Nicotine dependence, unspecified, uncomplicated
CPT/HCPCS: 99281; 99285; J1885; J2765; J7030

== ENCOUNTER 2017-10-18 23:52 | Emergency (ER) | payer OTHER ==
[~2017-10-18] VITALS: Ht 180.3 cm; Wt 75.6 kg
[~2017-10-18 23:52] MED LIST changes: +FIORICET 50-301 EAC1 PO; +MOTRIN800 MG PO; +REGLAN10 MG PO
[2017-10-19 00:52] LABS: HEMOGLOBIN 16.1 G/DL (12.5-16.6); MCH 31.6 PG (29.0-34.0); MCHC 35.8 G/DL (30.0-36.0); MCV 88.4 FL (86-99); PLATELET COUNT 309 K/uL (156-360); RBC DIS.WIDTH-CV 12.5 % (11.8-14.6); RBC DIS.WIDTH-SD 40.9 % (39-53); RED BLOOD COUNT 5.09 M/uL (4.00-5.50); WHITE BLOOD COUNT 10.1 K/uL (4.1-10.2)
[2017-10-19 01:04] LABS: ALBUMIN 4.5 g/dL (3.2-4.8); CHLORIDE 104 mEq/L (99-109); POTASSIUM 4.6 mEq/L (3.7-5.4); SODIUM 140 mEq/L (136-147)
[2017-10-19 01:07] LABS: GLUCOSE 102 mg/dL (70-99); TOTAL PROTEIN 7.4 g/dL (6.4-8.3)
[2017-10-19 01:09] LABS: TOTAL BILIRUBIN 0.3 mg/dL (0.0-1.0)
[2017-10-19 01:10] LABS: ALKALINE PHOSPHATASE 116 IU/L (3-129); CREATININE 1.1 mg/dL (0.6-1.3); GFR ESTIMATE (CALCULATED) > 59 mL/min/ (58.99-99999)
[2017-10-19 01:11] LABS: UREA NITROGEN (BUN) 13 mg/dL (9-23)
[2017-10-19 01:12] LABS: AST (GOT) 22 IU/L (2-34)
[2017-10-19 01:13] LABS: ALT (GPT) 20 IU/L (3-49)
[2017-10-19 03:09] LABS: MAGNESIUM 2.3 mg/dL (1.3-2.7)
[2017-10-19 03:13] LABS: SERUM ETHYL ALCOHOL 176 mg/dL
[2017-10-19 03:16] LABS: LIPASE 36 U/L (1.0-51.0)
[2017-10-19 03:17] LABS: CREATINE KINASE 156 IU/L (1-294)
[2017-10-19 03:22] LABS: TROP-I INTERPRETATION NEGATIVE; TROPONIN-I < 0.01 ng/mL (0.0-0.30)
[2017-10-19 07:46] LABS: AMPHETAMINE NEGATIVE (500 ng/mL); BARBITURATES PRESUMPTIVE POSITIVE (200 ng/mL); BENZODIAZEPINES PRESUMPTIVE POSITIVE (150 ng/mL); COCAINE NEGATIVE (150 ng/mL); METHADONE NEGATIVE (200 ng/mL); METHAMPHETAMINE NEGATIVE (500 ng/mL); OPIATES (MORPHINE) NEGATIVE (100 ng/mL); PHENCYCLIDINE NEGATIVE (25 ng/mL); THC CANNABINOIDS NEGATIVE (50 ng/mL); TRICYCLIC ANTIDEPRESSANTS NEGATIVE (300 ng/mL)
[2017-10-19 07:47] LABS: BUPRENORPHINE PRESUMPTIVE POSITIVE (10 ng/mL); OXYCODONE NEGATIVE (100 ng/mL); PROPOXYPHENE NEGATIVE (300 ng/mL)
[2017-10-19 08:20] LABS: BENZODIAZEPINES, URINE SCREEN Negative (200 ng/mL)
[2017-10-19] MEDS ORDERED: LIBRIUM25 MG PO (09:29)
[2017-10-19] MEDS ORDERED: B-1100 MG PO (09:29)
[2017-10-19 09:44] VITALS: BP 134/93
== END 2017-10-19 09:45 | disposition home or self-care (01) ==
LOC: EME 23:52
PROVIDERS: Emergency Medicine
DX: F41.9 Anxiety disorder, unspecified (principal); F10.239 Alcohol dependence with withdrawal, unspecified; R51 Headache; R00.2 Palpitations; R11.2 Nausea with vomiting, unspecified; F32.9 Major depressive disorder, single episode, unspecified; R00.0 Tachycardia, unspecified; I45.10 Unspecified right bundle-branch block; Z81.1 Family history of alcohol abuse and dependence; Z81.8 Family history of other mental and behavioral disorders; F17.200 Nicotine dependence, unspecified, uncomplicated; Y90.6 Blood alcohol level of 120-199 mg/100 ml
CPT/HCPCS: 70450; 80053; 82550; 83690; 83735; 84484; 84999; 85027; 90839; 93005; 99281; 99284; G0480; J0780; J1200; J3411; J7030

== ENCOUNTER 2018-01-27 08:28 | Inpatient (IN) | payer OTHER ==
[~2018-01-27] VITALS: Ht 180.3 cm; Wt 70.7 kg
[~2018-01-27 08:28] MED LIST changes: +B-1100 MG PO; -BUPRENORPHIN-N1 EACH SL; -SEROQUEL100 MG PO; +SEROQUEL50 MG PO; +SUBOXONE 12 MG1 EACH SL
[2018-01-27 09:14] LABS: HEMATOCRIT 45.3 % (38.0-50.0); HEMOGLOBIN 16.3 G/DL (12.5-16.6); MCH 31.7 PG (29.0-34.0); PLATELET COUNT 215 K/uL (156-360); RBC DIS.WIDTH-CV 13.1 % (11.8-14.6); RBC DIS.WIDTH-SD 42.5 % (39-53); RED BLOOD COUNT 5.15 M/uL (4.00-5.50); WHITE BLOOD COUNT 8.8 K/uL (4.1-10.2)
[2018-01-27 09:27] LABS: CHLORIDE 104 mEq/L (99-109); POTASSIUM 3.2 mEq/L (3.7-5.4); SODIUM 140 mEq/L (136-147)
[2018-01-27 09:28] LABS: GLUCOSE 138 mg/dL (70-99)
[2018-01-27 09:32] LABS: GFR ESTIMATE (CALCULATED) > 59 mL/min/ (58.99-99999)
[2018-01-27 09:33] LABS: UREA NITROGEN (BUN) 9 mg/dL (9-23)
[2018-01-27 09:38] LABS: TROP-I INTERPRETATION NEGATIVE; TROPONIN-I < 0.01 ng/mL (0.0-0.30)
[2018-01-27 10:32] LABS: SERUM ETHYL ALCOHOL 47 mg/dL
[2018-01-27 11:46] LABS: MAGNESIUM 2.3 mg/dL (1.3-2.7)
[2018-01-27 13:17] LABS: APPEARANCE CLEAR ((CLEAR)); BILIRUBIN NEGATIVE; BLOOD SMALL; COLOR YELLOW ((YELLOW)); GLUCOSE (STRIP) NEGATIVE; KETONES NEGATIVE; LEUKOCYTES NEGATIVE; NITRITE NEGATIVE; PROTEIN (STRIP) 30; SPECIFIC GRAVITY 1.032 (1.000-1.030)
[2018-01-27 13:22] LABS: BACTERIA NONE SEEN /HPF; EPITHELIAL CELLS RARE /HPF; MUCUS 1+ /LPF; UCUL ADDED? NO; WHITE BLOOD CELLS 0-5 /HPF (0-5)
[2018-01-27 13:40] LABS: AMPHETAMINE NEGATIVE (500 ng/mL); BARBITURATES NEGATIVE (200 ng/mL); BENZODIAZEPINES PRESUMPTIVE POSITIVE (150 ng/mL); BUPRENORPHINE PRESUMPTIVE POSITIVE (10 ng/mL); COCAINE NEGATIVE (150 ng/mL); METHADONE NEGATIVE (200 ng/mL); METHAMPHETAMINE NEGATIVE (500 ng/mL); OPIATES (MORPHINE) NEGATIVE (100 ng/mL); OXYCODONE NEGATIVE (100 ng/mL); PHENCYCLIDINE NEGATIVE (25 ng/mL); PROPOXYPHENE NEGATIVE (300 ng/mL); THC CANNABINOIDS NEGATIVE (50 ng/mL); TRICYCLIC ANTIDEPRESSANTS PRESUMPTIVE POSITIVE (300 ng/mL)
[2018-01-27 14:19] LABS: BENZODIAZEPINES, URINE SCREEN POSITIVE (200 ng/mL)
[2018-01-27 18:30] VITALS: BP 126/80
[2018-01-27 23:12] VITALS: BP 140/75
[2018-01-28 04:11] VITALS: BP 120/80
[2018-01-28 07:02] VITALS: BP 115/66
[2018-01-28 09:04] LABS: CHLORIDE 104 MEQ/L (99-109); GFR ESTIMATE (CALCULATED) > 59 mL/min/ (58.99-99999); SODIUM 142 MEQ/L (136-147); UREA NITROGEN (BUN) 9 mg/dL (9-23)
[2018-01-28 09:07] LABS: GLUCOSE 102 mg/dL (70-99); POTASSIUM 4.2 MEQ/L (3.7-5.4)
[2018-01-28 11:14] VITALS: BP 118/67
[2018-01-28] MEDS ORDERED: THERAGRAN1 TABLET PO (14:20)
[2018-01-28] MEDS ORDERED: FOLIC ACID1 MG PO (14:20)
[2018-01-28] MEDS ORDERED: THIAMINE HCL50 MG PO (14:20)
[2018-01-28 16:26] VITALS: BP 146/60
== END 2018-01-28 17:14 | DRG 897 ==
LOC: EME 08:28 → 5EAST 11:06 → EDOF 11:06 → ENRESERV 11:07 → 5EAST 17:57
PROVIDERS: Emergency Medicine; Internal Medicine; Physician Assistant
DX: F10.229 Alcohol dependence with intoxication, unspecified (principal); F10.239 Alcohol dependence with withdrawal, unspecified; R45.851 Suicidal ideations; F60.9 Personality disorder, unspecified; F32.9 Major depressive disorder, single episode, unspecified; L65.9 Nonscarring hair loss, unspecified; R00.0 Tachycardia, unspecified; F17.210 Nicotine dependence, cigarettes, uncomplicated; I10 Essential (primary) hypertension; F41.9 Anxiety disorder, unspecified; F11.10 Opioid abuse, uncomplicated; R56.9 Unspecified convulsions; F13.10 Sedative, hypnotic or anxiolytic abuse, uncomplicated; F41.0 Panic disorder [episodic paroxysmal anxiety]
CPT/HCPCS: 80048; 81003; 82948; 83735; 84484; 84999; 85027; 93005; 99281; 99285; G0480; J0572; J2060; J3411; J7030

== ENCOUNTER 2018-01-28 16:34 | Inpatient (IN) | payer OTHER ==
[~2018-01-28] VITALS: Ht 180.3 cm; Wt 68.2 kg
[~2018-01-28 16:34] MED LIST changes: +FOLIC ACID1 MG PO; +THERAGRAN1 TABLET PO; +THIAMINE HCL50 MG PO
[2018-01-28 17:38] VITALS: BP 136/89
[2018-01-29 07:49] VITALS: BP 129/66
[2018-01-29 15:42] VITALS: BP 125/73
[2018-01-30 07:35] VITALS: BP 112/66
[2018-01-30 14:41] LABS: HEPATITIS C ANTIBODY Nonreactive; HIV-1/2 AB/AG COMBO Nonreactive
[2018-01-30 14:44] LABS: TREPONEMA ANTIBODY NEGATIVE (NEGATIVE)
[2018-01-30 14:55] VITALS: BP 133/64
[2018-01-31] MEDS ORDERED: B-1100 MG PO (08:58)
[2018-01-31] MEDS ORDERED: FOLIC ACID1 MG PO (08:58)
[2018-01-31] MEDS ORDERED: SEROQUEL50 MG PO (08:58)
[2018-01-31] MEDS ORDERED: NEURONTIN300 MG PO (08:58)
[2018-01-31] MEDS ORDERED: XANAX1 MG PO (09:00)
== END 2018-01-31 10:38 | disposition home or self-care (01) | DRG 880 ==
LOC: 1WEST 16:34
PROVIDERS: Psychiatry & Neurology Psychiatry
DX: F41.0 Panic disorder [episodic paroxysmal anxiety] (principal); R45.851 Suicidal ideations; F11.20 Opioid dependence, uncomplicated; F10.10 Alcohol abuse, uncomplicated; I47.1 Supraventricular tachycardia; G89.29 Other chronic pain; M54.9 Dorsalgia, unspecified; M25.519 Pain in unspecified shoulder; F17.200 Nicotine dependence, unspecified, uncomplicated
CPT/HCPCS: 86780; 86803; 87389; 97150 GO; 97165 GO; J0572

== ENCOUNTER 2018-03-01 10:50 | Emergency (ER) | payer OTHER ==
[~2018-03-01] VITALS: Ht 180.3 cm; Wt 70.5 kg
[~2018-03-01 10:50] MED LIST changes: +NEURONTIN300 MG PO; +XANAX1 MG PO
[2018-03-01 12:19] VITALS: BP 115/59
== END 2018-03-01 12:43 | disposition left against medical advice (07) ==
LOC: EME 10:50
DX: F32.9 Major depressive disorder, single episode, unspecified (principal); F41.0 Panic disorder [episodic paroxysmal anxiety]; Z63.0 Problems in relationship with spouse or partner; F17.200 Nicotine dependence, unspecified, uncomplicated; Z53.20 Procedure and treatment not carried out because of patient's decision for unspecified reasons
CPT/HCPCS: 80053; 81003; 85027; 99281; 99284; G0480

== ENCOUNTER 2018-03-16 21:53 | Inpatient (IN) | payer OTHER ==
[~2018-03-16] VITALS: Ht 180.3 cm; Wt 67.9 kg
[2018-03-16 23:25] LABS: HEMATOCRIT 45.5 % (38.0-50.0); HEMOGLOBIN 16.1 G/DL (12.5-16.6); MCH 30.9 PG (29.0-34.0); MCHC 35.4 G/DL (30.0-36.0); MCV 87.3 FL (86-99); PLATELET COUNT 218 K/uL (156-360); RBC DIS.WIDTH-CV 12.9 % (11.8-14.6); RBC DIS.WIDTH-SD 41.2 % (39-53); RED BLOOD COUNT 5.21 M/uL (4.00-5.50)
[2018-03-16 23:33] LABS: ALBUMIN 4.2 g/dL (3.2-4.8); CHLORIDE 105 mEq/L (99-109); POTASSIUM 3.8 mEq/L (3.7-5.4); SODIUM 141 mEq/L (136-147)
[2018-03-16 23:36] LABS: GLUCOSE 97 mg/dL (70-99); TOTAL PROTEIN 6.8 g/dL (6.4-8.3)
[2018-03-16 23:37] LABS: TOTAL BILIRUBIN 0.7 mg/dL (0.0-1.0)
[2018-03-16 23:39] LABS: GFR ESTIMATE (CALCULATED) > 59 mL/min/ (58.99-99999); SERUM ETHYL ALCOHOL < 10 mg/dL
[2018-03-16 23:40] LABS: ALKALINE PHOSPHATASE 72 IU/L (3-129)
[2018-03-16 23:41] LABS: AST (GOT) 14 IU/L (2-34); UREA NITROGEN (BUN) 9 mg/dL (9-23)
[2018-03-16 23:43] LABS: ACETAMINOPHEN (TYLENOL) < 10 mcg/mL (10-30); ALT (GPT) 10 IU/L (3-49); SALICYLATE < 5.0 MG/DL (15-30)
[2018-03-17 01:45] LABS: AMPHETAMINE NEGATIVE (500 ng/mL); BARBITURATES NEGATIVE (200 ng/mL); BENZODIAZEPINES PRESUMPTIVE POSITIVE (150 ng/mL); BUPRENORPHINE NEGATIVE (10 ng/mL); COCAINE NEGATIVE (150 ng/mL); METHADONE NEGATIVE (200 ng/mL); METHAMPHETAMINE NEGATIVE (500 ng/mL); OPIATES (MORPHINE) NEGATIVE (100 ng/mL); OXYCODONE NEGATIVE (100 ng/mL); PHENCYCLIDINE NEGATIVE (25 ng/mL); PROPOXYPHENE NEGATIVE (300 ng/mL); THC CANNABINOIDS NEGATIVE (50 ng/mL); TRICYCLIC ANTIDEPRESSANTS NEGATIVE (300 ng/mL)
[2018-03-17 02:25] VITALS: BP 125/88
[2018-03-17 02:28] LABS: BENZODIAZEPINES, URINE SCREEN POSITIVE (200 ng/mL)
[2018-03-17 07:33] VITALS: BP 118/61
[2018-03-17 16:44] VITALS: BP 103/64
[2018-03-18 07:45] VITALS: BP 121/70
[2018-03-18] MEDS ORDERED: PAROXETINE HCL20 MG PO (09:00)
== END 2018-03-18 10:36 | disposition home or self-care (01) | DRG 882 ==
LOC: EME 21:53 → EDOF 03-17 00:41 → ENRESERV 03-17 01:32 → 1WEST 03-17 02:19
PROVIDERS: Emergency Medicine
DX: F43.23 Adjustment disorder with mixed anxiety and depressed mood (principal); R45.851 Suicidal ideations; F11.20 Opioid dependence, uncomplicated; F41.0 Panic disorder [episodic paroxysmal anxiety]; F10.10 Alcohol abuse, uncomplicated; G89.29 Other chronic pain; M25.511 Pain in right shoulder; M54.5 Low back pain; K21.9 Gastro-esophageal reflux disease without esophagitis; J45.909 Unspecified asthma, uncomplicated; I10 Essential (primary) hypertension; F17.210 Nicotine dependence, cigarettes, uncomplicated; Z65.3 Problems related to other legal circumstances
CPT/HCPCS: 80053; 84999; 85027; 90839; 93005; 99281; 99285; G0480; J0574